=== PATIENT | male | born 1990 | race Caucasian/White ===

== ENCOUNTER 2022-01-19 07:02 | Outpatient (CLI) | payer OTHER | END 2022-01-19 07:06 | disposition home or self-care (01) | LOC: LAB 07:02 | PROVIDERS: ATTEND Obstetrics & Gynecology | DX: Z20.818 Contact with and (suspected) exposure to other bacterial communicable diseases (principal); Z20.828 Contact with and (suspected) exposure to other viral communicable diseases ==

== ENCOUNTER 2023-10-19 17:39 | Emergency (ER) | payer OTHER ==
[~2023-10-19] VITALS: Ht 180.3 cm; Wt 90.7 kg
[2023-10-20] MEDS ORDERED: KETOROLAC TROMETHAMINE 60 MG VIAL IM STA (00:24)
[2023-10-20] MEDS ORDERED: KETOROLAC TROMETHAMINE 30 MG VIAL ONE (00:28)
[2023-10-20 00:50] LABS: HEMATOCRIT 42.4 % (39.0-48.0); HEMOGLOBIN 14.7 g/dL (13-16.00); MEAN CORPUSCULAR HEMOGLOBIN 31.4 pg (27.00-32.0); MEAN CORPUSCULAR HGB CONC 34.6 g/dl (32.0-36.0); PLATELET COUNT 235 K/uL (150-450); RED BLOOD COUNT 4.66 M/uL (4.00-6.00); RED CELL DISTRIBUTION WIDTH 13.6 % (11.5-14.5)
[2023-10-20 01:21] LABS: CALCIUM 9.2 mg/dL (8.5-10.1); CREATININE SERUM 0.77 mg/dL (0.70-1.30); GFR 115.65; POTASSIUM 3.8 mEq/L (3.5-5.1)
[2023-10-20 02:19] LABS: URINE APPEARANCE Clear; URINE BILIRRUBIN Negative (NEGATIVE); URINE BLOOD Trace; URINE COLOR Yellow; URINE GLUCOSE Negative (NEGATIVE); URINE LEUKOCYTE Negative; URINE NITRATE Negative; URINE PROTEIN Negative (NEGATIVE); URINE UROBILINOGEN 0.2 E.U./dl
[2023-10-20 02:23] LABS: URINE BACTERIA 12.5 uL (0.0-1933)
[2023-10-20 02:41] LABS: URINE EPITHELIAL CELLS 0.7 uL (0.0-38.8); URINE RBC 1.8 uL (0.0-20.8); URINE WBC 1.6 uL (0.0-23.2)
[2023-10-20] MEDS ORDERED: KETO10TA2 PO (03:55)
[2023-10-20] MEDS ORDERED: CIPRO500 MG PO (03:55)
== END 2023-10-20 04:02 | disposition home or self-care (01) ==
LOC: ER 17:40
PROVIDERS: General Practice
DX: R30.0 Dysuria (principal)